=== PATIENT | female | born 1960 | race Caucasian/White ===

== ENCOUNTER → 2019-10-01 | Outpatient (CLI) | payer OTHER ==
[~2019-10-01] MED LIST: IRON256 MG; Prozac40 MG PO
== END | disposition home or self-care (01) ==
LOC: LAB SHORT 17:12 → LAB EV 17:12
DX: N39.0 Urinary tract infection, site not specified (principal)
CPT/HCPCS: 87086

== ENCOUNTER 2019-11-15 18:33 | Emergency (ER) | payer OTHER ==
[~2019-11-15] VITALS: Ht 170.2 cm; Wt 87.5 kg
[2019-11-15] MEDS ORDERED: Percocet 7.5-31 EACH PO (19:53)
== END 2019-11-15 20:16 | disposition home or self-care (01) ==
LOC: ER 18:33
DX: S42.212A Unspecified displaced fracture of surgical neck of left humerus, initial encounter for closed fracture (principal); S22.42XA Multiple fractures of ribs, left side, initial encounter for closed fracture; F32.9 Major depressive disorder, single episode, unspecified; I10 Essential (primary) hypertension; Z79.899 Other long term (current) drug therapy; Z88.6 Allergy status to analgesic agent; Z88.8 Allergy status to other drugs, medicaments and biological substances; Z88.1 Allergy status to other antibiotic agents; V80.010A Animal-rider injured by fall from or being thrown from horse in noncollision accident, initial encounter
CPT/HCPCS: 29105; 71101; 73030; 96372-59; 99283-25; A9270; J1170

== ENCOUNTER 2019-11-23 06:08 | Day surgery (SDC) | payer OTHER ==
[~2019-11-23] VITALS: Ht 170.2 cm; Wt 91.0 kg
[~2019-11-23 06:08] MED LIST changes: +Percocet 7.5-31 EACH PO
--- NOTE | 2019-11-23 07:11 | NUR ---
Ambulatory in Day Surgery History, Chart, Medications and Allergies reviewed before start of procedure. Lungs clear T/O to Auscultation. Patient confirms NPO status and agrees with scheduled surgery. Pre-Op teaching done. Pt verbalizes understanding. Patient States Post-Procedure ride home has been arranged.
--- NOTE | 2019-11-23 14:03 | NUR ---
Patient up to Ambulate independently. Gait steady. Discharge instructions reviewed with patient. Patient verbalizes understanding. Copy given to patient to take home. Dressing to procedure site clean, dry, intact with no visible drainage, swelling, erythema or bruising noted. Discharged via wheelchair to private car for ride home.
== END 2019-11-23 22:53 | disposition home or self-care (01) ==
LOC: ORSCMMR 06:08 → ORD 11:15 → ORSCMMR 11:15
PROVIDERS: Orthopaedic Surgery
PROC: 0RRK0J6 Replacement of Left Shoulder Joint with Synthetic Substitute, Humeral Surface, Open Approach (ICD-10-PCS; principal; 2019-11-23 07:30)
PROC: 0PSD04Z Reposition Left Humeral Head with Internal Fixation Device, Open Approach (ICD-10-PCS; principal; 2019-11-23 07:30)
DX: S42.202A Unspecified fracture of upper end of left humerus, initial encounter for closed fracture (principal); Z87.891 Personal history of nicotine dependence; Z79.899 Other long term (current) drug therapy
CPT/HCPCS: 73030; C1776; J0690; J1885; J2250; J2370; J2405; J2704; J3010; J7120